=== PATIENT | female | born 1980 | race Caucasian/White ===

== ENCOUNTER 2019-08-13 15:33 | Outpatient (REF) | payer MEDICAID, SELFPAY ==
[2019-08-13 20:39] LABS: HCT 41.7 % (36.0-46.0); HGB 13.9 g/dL (12.0-15.5)
[2019-08-13 21:10] LABS: ALT 29 U/L (14-59); AST 14 U/L (15-37); Alkaline Phosphatase 54 U/L (46-116); Anion Gap 7.6 mmol/L (3-11); BUN 15 mg/dL (7-18); Bilirubin, Total 0.3 mg/dL (0.2-1.0); CO2 28.4 mmol/L (21.0-32.0); CREATININE 0.88 mg/dL (0.55-1.02); Calcium 9.2 mg/dL (8.5-10.1); Calculated LDL 81 mg/dL; Chloride 104 mmol/L (98-107); Cholesterol 158 mg/dL (<200); Ferritin 36 ng/mL (8-252); Glucose 97 mg/dL (74-106); HDL Cholesterol 67 mg/dL (40-60); Potassium 4.3 mmol/L (3.5-5.1); Sodium 140 mmol/L (136-145); TSH (W/Ref FT4) 1.05 uIU/mL (0.36-3.74); Triglyceride 54 mg/dL (<150)
== END 2019-08-13 15:53 ==
LOC: NCHCN 15:33
PROVIDERS: PCP Family Medicine; Visit Provider Family Medicine
DX: R53.83 Other fatigue (principal); Z00.00 Encounter for general adult medical examination without abnormal findings
CPT/HCPCS: 80053; 80061; 82728; 84443; 85014; 85018

== ENCOUNTER → 2023-09-02 13:55 | Outpatient (REF) | payer MEDICAID, SELFPAY ==
--- NOTE | 2023-09-02 14:30 | DI.RAD_ITS ---
Exam(s) XR CHEST 2V PA LATERAL EXAM: XR CHEST 2V PA LATERAL CLINICAL HISTORY: evaluate pathology TECHNIQUE: 2D digital imaging was performed. COMPARISON: No exams were available for comparison FINDINGS: HEART: Normal size. Aorta: Not dilated. PULMONARY VASCULATURE: Normal. LUNGS: Clear. PLEURAL SPACE: No pleural effusion or pneumothorax. BONE:Unremarkable for age. Soft tissues: Unremarkable. IMPRESSION: No acute abnormality. DATA REPOSITORY: RADIATION DOSE DELIVERED:
--- NOTE | 2023-09-02 14:52 | DI.VRAD_ITS ---
PROCEDURE INFORMATION: Exam: XR Chest Exam date and time: 09/02/2023 2:46 PM Age: 42 years old Clinical indication: Other: Evaluate pathology TECHNIQUE: Imaging protocol: Radiologic exam of the chest. Views: 2 views. COMPARISON: No relevant prior studies available. FINDINGS: Lungs: There are bilateral apical fibrotic changes. Pleural spaces: Unremarkable. No pleural effusion. No pneumothorax. Heart/Mediastinum: Unremarkable. No cardiomegaly. Bones/joints: Unremarkable. IMPRESSION: No acute cardiopulmonary process. Dictated and Authenticated by: Yemi Terry MD. Ordering:BLAYNE Tucker MD
== END ==
LOC: DI 13:55
PROVIDERS: PCP Family Medicine; Visit Provider Nurse Practitioner Family
DX: R05.9 Cough, unspecified (principal)
CPT/HCPCS: 71046

== ENCOUNTER 2023-09-02 15:23 | Outpatient (REF) | payer MEDICAID, SELFPAY ==
[2023-09-02 15:37] LABS: Abs Immature Grans 0.02 10^3/uL (0.0-0.06); Absolute Basophil Count 0.04 10^3/uL (0.0-0.2); Absolute Eosinophil Count 0.32 10^3/uL (0.0-0.7); Absolute Lymphocyte Count 1.78 10^3/uL (1.2-3.4); Absolute Monocyte Count 0.81 10^3/uL (0.1-0.8); Absolute Neutrophil Count 4.59 10^3/uL (1.2-6.7); Basophils % 0.5; Eosinophils % 4.2; HCT 44.5 % (36.0-46.0); HGB 14.7 g/dL (11.2-15.7); Immature Grans % 0.3; Lymphocytes % 23.5; MCH 29.3 pg (27.0-33.0); MCV 89 fL (80-95); MPV 11.2 fL (8.0-11.0); Monocytes % 10.7; Neutrophils % 60.8; Platelet Count 254 10^3/uL (130-400); RBC 5.01 10^6/uL (3.93-5.22); RDW 14.1 % (11.7-14.6); RDW-SD 45.4 fL; WBC 7.56 10^3/uL (4.4-10.8)
[2023-09-02 15:46] LABS: Anion Gap 5.4 mmol/L (3-11); BUN 20 mg/dL (7-18); CO2 29.6 mmol/L (21.0-32.0); CREATININE 0.9 mg/dL (0.55-1.02); Calcium 9.1 mg/dL (8.5-10.1); Chloride 102 mmol/L (98-107); Estimated GFR 81.86 (mL/min/1.73m2); Glucose 101 mg/dL (74-106); Potassium 4.6 mmol/L (3.5-5.1); Sodium 137 mmol/L (136-145)
== END 2023-09-02 15:24 | disposition home or self-care (01) ==
LOC: LBN 15:23
PROVIDERS: PCP Family Medicine; Visit Provider Nurse Practitioner Family
DX: R05.9 Cough, unspecified (principal)
CPT/HCPCS: 80048; 85025

== ENCOUNTER 2023-09-12 16:30 | Outpatient (REF) | payer MEDICAID, SELFPAY ==
[2023-09-12 19:43] LABS: ESR 6 mm/hr (0-20)
[2023-09-12 20:04] LABS: TSH (W/Ref FT4) 1.17 uIU/mL (0.36-3.74)
[2023-09-13 17:34] LABS: Rheumatoid Factor <8.6 IU/mL (<12.0)
[2023-09-14 13:18] LABS: ANA Interpretation Negative (Negative)
== END 2023-09-12 16:31 | disposition home or self-care (01) ==
LOC: NCHCN 16:30
PROVIDERS: PCP Family Medicine; Visit Provider Family Medicine
DX: M25.541 Pain in joints of right hand (principal)
CPT/HCPCS: 85652; 84443; 86038; 86140; 86431

== ENCOUNTER → 2023-10-03 04:06 | Outpatient (CLI) | payer MEDICAID, SELFPAY ==
--- NOTE | 2023-10-03 10:10 | DI.CT_ITS ---
Exam(s) CT CHEST HIGH RESOLUTION EXAM: CT CHEST HIGH RESOLUTION CLINICAL HISTORY: APICAL FIBROTIC CHANGES ON CXR,R91.8,CRACKLES,CHEST TIGHTNESS,FAM H/O PAUL. TECHNIQUE: Multi planar reconstructions were performed. CONTRAST MATERIAL: None COMPARISON: CR,XR XR CHEST 2V PA LATERAL from 09/02/2023 FINDINGS: CHEST: LUNGS: There are no infiltrates nor pleural effusions and there are no ominous pulmonary nodules. No evidence of obvious interstitial disease. No bullae. No significant findings in the trachea and ma instem bronchi and there is no evidence of bronchiectasis. MEDIASTINUM: There is no obvious hilar nor mediastinal adenopathy. Visualized thyroid unremarkable.No obvious axillary adenopathy CARDIAC: Heart size is normal. There is no pericardial effusion.No coronary artery calcification pradeep dent. Caliber of thoracic aorta is within normal limits. VISUALIZED UPPER ABDOMEN:No adrenal masses. No splenomegaly. OSSEOUS: No significant osseous lesions.No fractures.. IMPRESSION: 1. No significant pulmonary findings. No pleural effusions. No intrathoracic adenopathy 2. No evidence of interstitial lung disease nor emphysematous changes. RADIATION DOSE DELIVERED: 539.93mGy.cm Total DLP DATA REPOSITORY: All CT scans at this facility are submitted to the National Radiology Data Registry (NRDR) Dose Index Registry (DIR) with the [employer] ([employer]). RADIATION OPTIMIZATION: All CT scans at this facility use at least one of these dose optimization te chniques: automated exposure control; mA and/or kV adjustment per patient size (includes targeted exa ms where dose is matched to clinical indication); or iterative reconstruction.
== END ==
PROVIDERS: PCP Family Medicine; Visit Provider Family Medicine
DX: R91.8 Other nonspecific abnormal finding of lung field (principal)
CPT/HCPCS: 71250